=== PATIENT | female | born 1950 | race Caucasian/White ===

== ENCOUNTER 2024-01-17 12:55 | Emergency (ER) | payer MEDICARE, BC ==
[~2024-01-17] VITALS: Ht 157.5 cm; Wt 49.9 kg
[2024-01-17] MEDS ORDERED: LIDOCAINE 1% INJ 50 ML MDV IJ ONE (13:48)
[2024-01-17] MEDS ORDERED: TDAP [DIPH/PERTUSSIS/TET] 0.5 ML VIAL IM ONE (13:49)
[2024-01-17] MEDS: TDAP [DIPH/PERTUSSIS/TET] 0.5 ML VIAL IM ONE (13:56)
[2024-01-17] MEDS ORDERED: BACI/NEOM/POLY B OINT PKT 1 UDPKT PACKET ONE (14:03)
[2024-01-17] MEDS ORDERED: LIDOCAINE 0.5% HCL 50 ML VIAL ONE (14:03)
[2024-01-17] MEDS: BACI/NEOM/POLY B OINT PKT 1 UDPKT PACKET TP ONE (14:10)
[2024-01-17] MEDS: LIDOCAINE 1% INJ 50 ML MDV IJ ONE (14:10)
[2024-01-17] MEDS ORDERED: CEPH-570 PO (16:04)
[2024-01-17] MEDS ORDERED: IBUP-1955 PO (16:04)
[2024-01-17 16:41] VITALS: BP 129/78; TEMP 98.2; O2SAT 95
== END 2024-01-17 16:42 | disposition home or self-care (01) ==
LOC: ER 13:03
DX: S92.521A Displaced fracture of middle phalanx of right lesser toe(s), initial encounter for closed fracture (principal); S92.534A Nondisplaced fracture of distal phalanx of right lesser toe(s), initial encounter for closed fracture; S91.114A Laceration without foreign body of right lesser toe(s) without damage to nail, initial encounter; S91.311A Laceration without foreign body, right foot, initial encounter; W25.XXXA Contact with sharp glass, initial encounter; Y93.89 Activity, other specified; Y92.89 Other specified places as the place of occurrence of the external cause; Y99.8 Other external cause status
CPT/HCPCS: 12002; 73660; 90471; 90715; 99283; A6403; J3490

== ENCOUNTER 2024-01-29 08:37 | Emergency (ER) | payer MEDICARE, BC ==
[~2024-01-29] VITALS: Ht 157.5 cm; Wt 49.9 kg
[~2024-01-29 08:37] MED LIST: CEPH-570 PO; IBUP-1955 PO
[2024-01-29 08:39] VITALS: BP 118/71; TEMP 98
[2024-01-29 08:57] VITALS: O2SAT 97
== END 2024-01-29 08:58 | disposition home or self-care (01) ==
LOC: ER 08:39
DX: S91.114D Laceration without foreign body of right lesser toe(s) without damage to nail, subsequent encounter (principal); Z79.1 Long term (current) use of non-steroidal anti-inflammatories (NSAID); X58.XXXD Exposure to other specified factors, subsequent encounter

== ENCOUNTER 2025-05-09 09:10 | Emergency (ER) | payer MEDICARE, BC ==
[~2025-05-09] VITALS: Ht 157.5 cm; Wt 47.6 kg
[2025-05-09 09:17] VITALS: TEMP 98
[2025-05-09] MEDS ORDERED: CIPR-262 PO (09:33)
[2025-05-09] MEDS ORDERED: CIPROFLOXACIN HCL 500 MG TABLET ONE (09:38)
[2025-05-09 10:01] LABS: APPEARANCE,URINE TURBID (CLEAR); BLOOD, URINE 1+ Ery/uL (NEGATIVE); LEUKOCYTE ESTERASE ,URINE 3+ (NEGATIVE); NITRITE, URINE NEGATIVE (NEGATIVE); UGLUCOSE NEGATIVE (NEGATIVE)
[2025-05-09 10:04] LABS: ADD URINE CULTURE YES; SQUAMOUS EPITHELIAL CELL,UR 0-2 /HPF (None Seen)
[2025-05-09] MEDS: CIPROFLOXACIN HCL 500 MG TABLET PO ONE (10:07)
[2025-05-09 10:10] VITALS: BP 108/68; O2SAT 97
== END 2025-05-09 10:08 | disposition home or self-care (01) ==
LOC: ER 09:19
DX: N39.0 Urinary tract infection, site not specified (principal)
CPT/HCPCS: 81001; 87086-TC; 87186-TC